=== PATIENT | female | born 1995 | race Two or more races ===

== ENCOUNTER 2024-09-12 11:30 | Outpatient (RCR) | payer MEDICAID, SELFPAY ==
--- NOTE | 2024-09-04 11:34 | PT.OIERPT ---
PT OP Initial Eval Patient Information Outpatient Physical Therapy Treatment Date: 09/04/24 Visit Reasons: BILATERAL KNEE PAIN Medical Diagnosis: M25.561 M25.562 Treatment Dx #1: B LE pain Start of Care: 09/04/24 Date of Onset: 2 yrs ago Smoking Status Smoking Status: Never smoker Initial Assessment Subjective: Pt is 29 yr old chinese speaking female who reports LBP and B knee pain R>L x2 yrs. 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 PMH: DM, high cholesterol Imaging: with provider Pt goal: to get rid of the pain Objective: B knee AROM; Strength: Extension: full 4-/5 Flexion: full 4-5 Brayden's: negative Patella compression: negative Varus/valgus: WNL Assessment: Pt presents with good ROM and strength of B knees today. The knee special testing was negative today and pain may be consistent with patellofemoral pain. Pt may benefit from skilled therapy in order to decrease pain and improve sitting/standing tolerance and has fair rehab potential. Short Term and Dietetic Intern Goals ??? 1. Ind with HEP ? 2. Improved sitting/standing tolerance to 30 minutes with <=4/10 LBP ? 3. Improved HH chore and work tolerance to at least 90 minutes with <=3/10 B knee pain and no ?increase in LE ssx Treatment Plan ? 1. Manual therapy ? 2. Therex ? 3. Modalities as indicated, moist heat, ice, estim Frequency and Duration: 1-2x a week for 12 Rx sessions plus evaluation Certification Dates: 09/04/24 to 12/03/24 Procedure Charges OP PT Eval Mod Complex 30 minutes: Yes
--- NOTE | 2024-09-12 12:19 | PT.ODAYNRPT ---
PT Outpatient Daily Note OP Daily Note Outpatient Physical Therapy Treatment Date: 09/12/24 Visit Reasons: BILATERAL KNEE PAIN Subjective: Pt shared she has been compliant with HEP but mid lumbar region is sore. Objective: Please see flow sheet for there x lsit. Assessment: Pt encouraged to continue with HEP and perform within tolerable range, pt agreed. Plan: Continue with POC. Length of Time (minutes) of Treatment: 30 Minutes Procedure Charges Therapeutic Exercise 30 minutes: Yes
== END 2024-09-13 23:59 | disposition home or self-care (01) ==
LOC: CPTX 11:30
PROVIDERS: PCP Nurse Practitioner; Referring Provider Nurse Practitioner; Visit Provider Nurse Practitioner
DX: M25.562 Pain in left knee (principal); M25.561 Pain in right knee; M54.50 Low back pain, unspecified; E11.9 Type 2 diabetes mellitus without complications
CPT/HCPCS: 97110; 97162

== ENCOUNTER 2024-09-17 16:44 | Outpatient (RCR) | payer MEDICAID, SELFPAY ==
--- NOTE | 2024-09-17 18:33 | PT.ODAYNRPT ---
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
--- NOTE | 2024-10-24 16:26 | PT.ODS1RPT ---
PT OP Progress/Discharge Note Date of Service: 10/24/24 Progress Note/DC Note Progress Note/Discharge Note: DC Note Patient Information Visit Reasons: Bilateral knee pain Service Continue Service or Discharge: Discharge Discharge Date: 10/24/24 Status Assessment: Pt attended the initial evaluation and 2 Rx visits and never returned or called to schedule a follow-up appointment within the past 30 days, which is not in compliance with attendance policy. Pt?s attendance is not consistent enough to make progress with goals. Thank you for your referrals. Plan: D/C
== END 2024-10-14 23:59 | disposition home or self-care (01) ==
LOC: CPTX 16:44
PROVIDERS: PCP Nurse Practitioner; Referring Provider Nurse Practitioner; Visit Provider Nurse Practitioner
DX: M25.562 Pain in left knee (principal); M25.561 Pain in right knee; M54.50 Low back pain, unspecified; E11.9 Type 2 diabetes mellitus without complications
CPT/HCPCS: 97110

== ENCOUNTER → 2024-11-11 | Outpatient (CLI) | payer MEDICAID, SELFPAY ==
--- NOTE | 2024-11-11 11:00 | XR_ITS ---
Examination: Breast ultrasound complete, bilateral Date and time of exam: November 11, 2024 1136 hours INDICATIONS: Bilateral breast pain beginning 2 months ago Technique: Real-time grayscale ultrasonographic imaging bilateral breasts, including all 4 quadrants as well as nipple retroareolar and axillary regions. Findings: No cystic or solid mass involving either breast Mildly prominent right axillary lymph node 3.2 cm IMPRESSION: BI-RADS Category 3: Probably benign findings Recommend 1 additional 6 month right breast sonogram follow-up to document stability of enlarged right axillary lymph node
== END | disposition home or self-care (01) ==
PROVIDERS: PCP Nurse Practitioner; Referring Provider Nurse Practitioner; Visit Provider Nurse Practitioner
DX: R59.0 Localized enlarged lymph nodes (principal)
CPT/HCPCS: 76641

== ENCOUNTER → 2025-04-08 | Outpatient (CLI) | payer MEDICAID, SELFPAY ==
--- NOTE | 2025-04-08 11:00 | XR_ITS ---
Examination: Complete OB ultrasound, less than 14 weeks, transabdominal Date and time of exam: April 08, 2025 1048 hours INDICATIONS: Encounter for supervision of normal first trimester Technique: Obstetrical ultrasound images less than 14 weeks performed via transabdominal imaging Findings: A normal shaped single intrauterine gestation is present in the uterus. CRL 4.5 cm corresponds to 11 weeks 2 days gestational age Cardiac motion 158 BPM Ultrasonographic survey of visible and placental structures unremarkable. Amniotic fluid volume appears appropriate for this estimated gestational age. Right ovary 2.9 cm arterial flow. Left ovary 3.9 cm arterial flow 16mm cyst IMPRESSION: Viable intrauterine gestation 11 weeks 2 days.
== END | disposition home or self-care (01) ==
PROVIDERS: Referring Provider Obstetrics & Gynecology; Visit Provider Obstetrics & Gynecology
DX: Z34.91 Encounter for supervision of normal pregnancy, unspecified, first trimester (principal); Z3A.11 11 weeks gestation of pregnancy
CPT/HCPCS: 76801

== ENCOUNTER 2025-06-04 18:32 | Emergency (ER) | payer MEDICAID, SELFPAY ==
[2025-06-04 19:02] VITALS: BP 119/78; PULSE 110; RESP 20; TEMP 38; O2SAT 98
--- NOTE | 2025-06-04 19:17 | PD.EDNV ---
Nausea/Vomit./Diarrhea-RME/HPI General Chief complaint: Nausea/Vomiting/Diarrhea Stated complaint: VOMITING, CHILLS, GENERALIZED ACHING Time Seen by Provider: 06/04/25 19:01 Arrival date/time: 06/04/25 18:32 30-year-old female G7, approximately 19 weeks gestation reports with complaints of urinary urgency frequency dysuria and pelvic pressure back pain and fever. Patient denies any vaginal bleeding or vaginal discharge. Patient states that she took Tylenol prior to her visit for the fever Limitations: no limitations Related Data Home Medications ?Medication ?Instructions ?Recorded ?Confirmed folic acid 1 mg tablet 1 mg PO QDAY 07/26/18 07/03/20 glyburide 5 mg tablet 5 mg PO BID 05/29/20 07/03/20 Previous Rx's ?Medication ?Instructions ?Recorded cephalexin 500 mg tablet 500 mg PO Q12H 10 days #20 tabs 06/04/25 Allergies Allergy/AdvReac Type Severity Reaction Status Date / Time No Known Allergies Allergy Verified 06/04/25 18:39 Review of Systems Constitutional Constitutional: Denies chills and Denies fever(s) Cardiovascular Cardiovascular: Denies chest pain and Denies dyspnea Respiratory Respiratory: Denies cough and Denies dyspnea Gastrointestinal Gastrointestinal: Denies nausea and Denies vomiting Genitourinary Genitourinary: Denies abnormal vaginal bleeding, Reports dysuria, Denies hematuria, Denies pelvic pain, Denies urinary incontinence, Denies urinary hesitancy and Denies urinary urgency Musculoskeletal Musculoskeletal: Reports back pain and Denies myalgias Past Medical History Past Medical History NEUROLOGIC: Negative Neurological Disorders or Seizures CARDIAC: Negative Cardiac Disorders or Congestive Heart Failure RESPIRATORY: Negative Chronic Obstructive Pulmonary Disease (COPD) GASTROINTESTINAL: Negative Gastrointestinal Disorders or Hepatitis GENITOURINARY: Negative Genitourinary Disorders or Renal Disease REPRODUCTIVE: Positive Previous Pregnancies MUSCULOSKELETAL: Negative Musculoskeletal Disorders ENDOCRINE: Positive Endocrine Disorders and Diabetes Mellitus Type 2; Negative Diabetes Mellitus Type 1 HEMATOLOGIC: Negative Blood Disorders OTHER HISTORY: Positive Hospitalization (2017, borderline diabetic coma) and Chicken Pox; Negative Autoimmune Disease, Down Syndrome, Developmental Delay, Shingles, Falls, Blood Transfusions, Blood Transfusion Reaction, Anesthesia Reactions, Organ Transplant, Chemotherapy, Radiation Therapy, Hyperbaric Therapy, MRSA, VRSA, Vancomycin-Resistant Enterococci, Human Immunodeficiency Virus (HIV), Measles, Mumps, Rubella ([place] Measles), Pertussis, Clostridium Difficile or Cancer Family History FAMILY HISTORY: Positive Family Cancer (sister, uterine) and Family Surgery (mother, eyes); Negative Family Psychiatric Problems, Family Respiratory Disorders, Family Cardiac Disorders, Family Gastrointestinal Problems or Family Anesthesia Reaction Surgical History SURGICAL: Negative Section or Organ Transplant Social History SMOKING STATUS: Never smoker SECOND HAND EXPOSURE: No ED Exam General Limitations: Present no limitations General appearance: Present alert and in no apparent distress Chest Chest inspection: Present normal inspection and symmetric chest wall rise Respiratory Respiratory exam: Present normal lung sounds bilaterally Cardiovascular Cardiovascular exam: Present regular rate, normal rhythm and normal heart sounds Abdominal Exam Abdominal exam: Present soft, tenderness and normal bowel sounds; Absent distention, guarding, rebound, mass or bruit Abdominal tenderness: Present suprapubic and mild Extremities Exam Extremities exam: Present normal inspection and full ROM Back Exam Back exam: Present normal inspection and full ROM Neurological Exam Neurological exam: Present alert, oriented X3 and CN II-XII intact Psychiatric Psychiatric exam: Present normal affect and normal mood Skin Skin exam: Present warm, dry, intact and normal color Course Quality Measures none Orders Category Date Time Status HCG Qualitative,Urine Stat Lab 06/04/25 20:35 Completed UA, C/S IF [Urinalysis, C/S if Indicated] Stat Lab 06/04/25 20:35 Completed Urine Culture Stat Lab 06/04/25 20:35 Received 1000 mg IM Med 06/04/25 21:27 Ordered cefTRIAXone [Rocephin] 1,000 mg Lidocaine 1% Pf 5 ml [Xylocaine 1% Pf 5 ml] 2.1 ml IM X1 Vital Signs Vital signs: Vital Signs Temperature 100.4 F 06/04/25 19:02 Pulse Rate 110 H 06/04/25 19:02 Respiratory Rate 20 06/04/25 19:02 Blood Pressure 119/78 06/04/25 19:02 Pulse Oximetry (%) 98 06/04/25 19:02 Oxygen Delivery Method Room Air 06/04/25 19:02 Nausea/Vomiting/Diarrhea Patient data External records reviewed:: None Clinical information provided by:: patient Social determinants that could affect healthcare access:: none Patient has the following chronic illnesses:: none How is presenting disease/condition affected by chronic disease/condition?: no chronic disease Evaluation data The following diagnostics were reviewed and interpreted by me:: lab results Lab and/or radiology exams considered but not ordered:: none Interpretation Summary: UTI Medications / Prescriptions Medications / Prescriptions considered but not ordered:: None Medication administrations:: Rocephin 1 g IM Consultations Consultation(s) initiated? (list below): No Diagnosis Nausea Differential Diagnosis: other (Acute cystitis versus interstitial cystitis versus frequent urination in ) Most likely diagnosis given after review of the tests above:: Acute cystitis Admission Indicated Admission indicated?: indicated Admission Request Was there a request for admission?: No Disposition Plan Disposition Plan: Discharge Discharge Attestation Discharge Attestation: The patient and all family members were given an opportunity to ask questions and understood the discharge instructions. Discharge instructions specifically effects, indications for sooner follow up or return to the emergency department, and the expected course of current diagnosis. Patient condition: Stable Discharge Plan Plan Patient Disposition: HOME (Self Care) Prescriptions/Referrals Prescriptions/Med Rec: New cephalexin 500 mg tablet 500 mg PO Q12H 10 Days Qty: 20 0RF No Action folic acid 1 mg Tablet 1 mg PO QDAY glyburide 5 mg Tablet 5 mg PO BID Referrals: Bill Vargas MD [Primary Care Provider, Obstetrics] - In 1 week Problem List Clinical Impression: UTI (urinary tract infection) Patient/Caregiver Discharge Instructions Discharge Activity: activity as tolerated Education Materials: ED CYSTITIS Female Adult Additional Instructions: Your lab test shows an infection in your urine. You will be treated for infection. You will treated with an antibiotic. Be sure to hydrate well with plenty of water and follow-up with your primary care provider or the clinic if symptoms should worsen or not improve in 3 days Print Language: Sami Stand Alone Forms: [facility] Award Info., Patient Portal Info Letter
[2025-06-04 20:45] LABS: Collection Type, Urine Clean Catch
[2025-06-04 20:53] LABS: HCG Qualitative,Urine Positive
[2025-06-04 20:56] LABS: Bacteria,Urine 4+; Bilirubin,Urine Negative (Negative); Blood,Urine Negative (Negative); Color,Urine Yellow (Lt Yel-Yel); Glucose, Urine Negative (Negative); Ketones,Urine Negative (Negative); Leukocyte Esterase,Urine Positive (Negative); Nitrite,Urine Positive (Negative); PH,Urine 6.0 (5.0-7.0); Protein,Urine Trace (Neg - Trace); RBC,Urine 2 /hpf (0-3); Specific Gravity,Urine 1.021 (1.001-1.035); Squamous Epithelial Cell,Urine 2 /hpf (0-5); Urobilinogen,Urine Negative mg/dL (0.0-1.0); WBC,Urine 59 /hpf (0-5)
[2025-06-04 20:59] LABS: Clarity,Urine Hazy (Clear/Hazy); Culture Indicated,Urine Yes
[2025-06-04 21:44] VITALS: BP 106/72; PULSE 100; RESP 18; TEMP 37.5; O2SAT 98
== END 2025-06-04 22:53 | disposition home or self-care (01) ==
PROVIDERS: Physician Assistant; Emergency Provider Emergency Medicine; PCP Obstetrics & Gynecology
DX: O23.42 Unspecified infection of urinary tract in pregnancy, second trimester (principal); N30.00 Acute cystitis without hematuria; O21.9 Vomiting of pregnancy, unspecified; O23.12 Infections of bladder in pregnancy, second trimester; O99.891 Other specified diseases and conditions complicating pregnancy; Z3A.19 19 weeks gestation of pregnancy
CPT/HCPCS: 81001; 81025; 87077; 87086; 87186; 96372; 99283; J0696; J3490

== ENCOUNTER → 2025-06-11 | Outpatient (CLI) | payer MEDICAID, SELFPAY ==
--- NOTE | 2025-06-11 09:15 | XR_ITS ---
Examination: Breast ultrasound, unilateral, June 11, 2025, 0937 hours INDICATIONS: Right breast pain 5 months Date and time of exam: June 11, 2025, 936 hours Technique: Real-time tapia scale ultrasonographic imaging performed right breast including all 4 quadrants as well as nipple retroareolar and axillary region. Findings: No cystic or solid mass Enlarged right axillary lymph node 3.72 cm with possible internal architectural distortion IMPRESSION: BI-RADS Category 3: Probably benign findings Recommend 1 additional 3 to 6-month follow-up right breast sonography to assess the enlarged lymph node in the right axilla
== END | disposition home or self-care (01) ==
LOC: CDIM 09:17
PROVIDERS: Referring Provider Obstetrics & Gynecology; Visit Provider Obstetrics & Gynecology
DX: R59.0 Localized enlarged lymph nodes (principal)
CPT/HCPCS: 76641